=== PATIENT | male | born 1995 | race Caucasian/White ===

== ENCOUNTER 2018-11-29 23:01 | Inpatient (IN) | payer OTHER ==
[~2018-11-29] VITALS: Ht 177.8 cm; Wt 75.0 kg
[2018-11-29] MEDS ORDERED: TRAZ-252 PO (23:32)
[2018-11-29] MEDS ORDERED: PHENY100 PO (23:32)
[2018-11-29] MEDS ORDERED: DIAZ10I IM (23:32)
[2018-11-29] MEDS ORDERED: GABA-531 PO (23:32)
[2018-11-29] MEDS ORDERED: IBUP-2070 PO (23:32)
[2018-11-29] MEDS ORDERED: HYDR50CA10 PO (23:32)
[2018-11-29] MEDS ORDERED: SERT100T12 PO (23:32)
[2018-11-29] MEDS ORDERED: HYDR-4031 PO (23:32)
[2018-11-29] MEDS ORDERED: 0.9% SODIUM CHLORIDE 10 ML SYRINGE IVP PRN (23:45)
[2018-11-29] MEDS ORDERED: ONDANSETRON HCL 4 MG/2 ML VIAL IVP PRN (23:45)
[2018-11-29] MEDS ORDERED: ACETAMINOPHEN 325 MG TABLET PO PRN (23:45)
[2018-11-30] LABS: BASOPHILS % (AUTO) 0.7 % (0.0-2.0); EOSINOPHILS % (AUTO) 1.2 % (1.0-6.0); HEMOGLOBIN 14.4 g/dL (13.5-17.5); LYMPHOCYTES # (AUTO) 1.4 K/uL (1.0-4.8); LYMPHOCYTES % (AUTO) 23.5 % (22.0-44.0); MEAN CORPUSCULAR HEMOGLOBIN 32.5 pg (26.0-34.0); MEAN CORPUSCULAR HGB CONC 33.5 G/dL (31.0-37.0); MEAN CORPUSCULAR VOLUME 97 fL (80-100); MONOCYTES # (AUTO) 0.9 K/uL (0.1-1.0); MONOCYTES % (AUTO) 14.6 % (2.0-9.0); NEUTROPHILS # (AUTO) 3.7 K/uL (1.8-7.7); PLATELET COUNT (AUTO) 245 K/uL (150-450); RED BLOOD CELL COUNT(AUTO) 4.43 MIL/uL (4.50-5.90); RED CELL DISTRIBUTION WIDTH 13.5 % (11.5-14.5)
[2018-11-30 00:13] LABS: ANION GAP 10 mmol/L (8-16); CALCIUM, TOTAL 9.1 mg/dL (8.8-10.5); CARBON DIOXIDE 23 mmol/L (22-29); CHLORIDE 105 mmol/L (98-107); CREATININE 1.07 mg/dL (0.60-1.30); GLOMERULAR FILTR. RATE CALC > 60 mL/min (>60); GLUCOSE,RANDOM 108 mg/dL (70-110); POTASSIUM 3.6 mmol/L (3.5-5.1); SODIUM SERUM 138 mmol/L (136-145); UREA NITROGEN, BLOOD 14 mg/dL (7-18)
[2018-11-30 00:19] LABS: ALANINE AMINOTRANSFERASE 14 U/L (12-78); ALBUMIN 3.8 g/dL (3.4-5.0); ALKALINE PHOSPHATASE 85 U/L (46-116); BILIRUBIN,TOTAL 0.3 mg/dL (0.1-1.0); PHENYTOIN (DILANTIN) 24.6 mcg/mL (10.0-20.0); TOTAL PROTEIN, SERUM 6.8 g/dL (6.4-8.2)
[2018-11-30 00:20] LABS: LACTIC ACID 1.7 mmol/L (0.4-2.0)
[2018-11-30 00:22] LABS: AMPHET/METH SCREEN,URINE NEGATIVE (NEGATIVE); BARBITURATE SCREEN, URINE NEGATIVE (NEGATIVE); BENZODIAZEPINES SCREEN,URINE POSITIVE (NEGATIVE); CANNABINOID SCREEN,URINE NEGATIVE (NEGATIVE); COCAINE SCREEN,URINE NEGATIVE (NEGATIVE); METHADONE SCREEN, URINE NEGATIVE (NEGATIVE); OPIATE SCREEN,URINE NEGATIVE (NEGATIVE)
[2018-11-30 00:24] LABS: PHENCYCLIDINE SCREEN,URINE NEGATIVE (NEGATIVE)
[2018-11-30 00:25] LABS: APPEARANCE,URINE CLEAR (CLEAR); BILIRUBIN,URINE NEGATIVE (NEGATIVE); GLUCOSE, URINE (UA) NEGATIVE (NEGATIVE); KETONES,URINE NEGATIVE (NEGATIVE); LEUKOCYTE ESTERASE ,URINE NEGATIVE (NEGATIVE); NITRATE,URINE NEGATIVE (NEGATIVE); OCCULT BLOOD,URINE NEGATIVE (NEGATIVE); PH,URINE 7.5 (5.0-8.0); PROTEIN,URINE NEGATIVE (NEGATIVE); UROBILINOGEN,URINE 0.2 mg/dL (<=1.0)
[2018-11-30 00:28] LABS: ASPARTATE AMINOTRANSFERASE 24 U/L (15-37)
[2018-11-30 00:43] LABS: BACTERIA,URINE Few /HPF (None Seen); RBC,URINE 0-2 /HPF (0-2); WBC,URINE 0-2 /HPF (0-5)
[2018-11-30 02:21] VITALS: BP 114/58
[2018-11-30] MEDS ORDERED: MAGNESIUM HYDROXIDE SUSPENSION 30 ML UDCUP PO PRN (05:00)
[2018-11-30] MEDS ORDERED: ACETAMINOPHEN 325 MG TABLET PO PRN (05:00)
[2018-11-30] MEDS ORDERED: LORazepam 2 MG/ML VIAL IVP PRN (06:45)
[2018-11-30 07:28] VITALS: BP 105/66
[2018-11-30] MEDS: FAMOTIDINE 20 MG TABLET PO SCH (08:29)
[2018-11-30] MEDS: PHENYTOIN SODIUM 100 MG ER CAPSULE PO SCH ×2 (08:29→21:26)
[2018-11-30] MEDS: GABAPENTIN 300 MG CAPSULE PO SCH ×3 (08:29→21:26)
[2018-11-30] MEDS ORDERED: GABAPENTIN 100 MG CAPSULE PO ONE (09:00)
[2018-11-30] MEDS ORDERED: PHENYTOIN SODIUM 100 MG ER CAPSULE PO ONE (09:00)
[2018-11-30 11:47] VITALS: BP 113/57
[2018-11-30] MEDS: SERTRALINE HCL 100 MG TABLET PO SCH (12:34)
[2018-11-30 15:48] VITALS: BP 107/50
[2018-11-30 19:52] VITALS: BP 114/58
[2018-11-30] MEDS ORDERED: TraZODone HCL 50 MG TABLET PO SCH (21:00)
[2018-11-30 23:33] VITALS: BP 123/64
[2018-12-01 05:35] VITALS: BP 122/59
[2018-12-01 07:31] VITALS: BP 105/60
[2018-12-01] MEDS: FAMOTIDINE 20 MG TABLET PO SCH (08:52)
[2018-12-01] MEDS: GABAPENTIN 300 MG CAPSULE PO SCH (08:53)
[2018-12-01] MEDS: SERTRALINE HCL 100 MG TABLET PO SCH (08:53)
[2018-12-01] MEDS ORDERED: PHEN100C23 PO (09:46)
== END 2018-12-01 12:05 | DRG 880 ==
LOC: EMS 23:02 → 6S 11-30 00:03
PROVIDERS: ADMIT Internal Medicine; ATTEND Internal Medicine
DX: F44.5 Conversion disorder with seizures or convulsions (principal); F33.2 Major depressive disorder, recurrent severe without psychotic features; F41.1 Generalized anxiety disorder; F12.90 Cannabis use, unspecified, uncomplicated; F60.3 Borderline personality disorder; Z79.899 Other long term (current) drug therapy; Z87.891 Personal history of nicotine dependence; Z88.8 Allergy status to other drugs, medicaments and biological substances
CPT/HCPCS: 83605; 87040; 93005; G0480

== ENCOUNTER 2019-02-21 21:04 | Inpatient (IN) | payer OTHER ==
[~2019-02-21] VITALS: Ht 177.8 cm; Wt 77.5 kg
[~2019-02-21 21:04] MED LIST: ASPI-1192 PO; GABA-531 PO; IBUP-2070 PO; PHEN100C23 PO; SERT100T12 PO; TRAZ-252 PO
[2019-02-21 22:37] LABS: BASOPHILS % (AUTO) 1.2 % (0.0-2.0); EOSINOPHILS % (AUTO) 2.4 % (1.0-6.0); HEMATOCRIT 47.3 % (41-53); HEMOGLOBIN 15.9 g/dL (13.5-17.5); LYMPHOCYTES # (AUTO) 1.6 K/uL (1.0-4.8); LYMPHOCYTES % (AUTO) 32.3 % (22.0-44.0); MEAN CORPUSCULAR HEMOGLOBIN 32.7 pg (26.0-34.0); MEAN CORPUSCULAR HGB CONC 33.6 G/dL (31.0-37.0); MEAN CORPUSCULAR VOLUME 97 fL (80-100); MONOCYTES % (AUTO) 21.3 % (2.0-9.0); NEUTROPHILS # (AUTO) 2.1 K/uL (1.8-7.7); NEUTROPHILS % (AUTO) 42.8 % (40.0-70.0); PLATELET COUNT (AUTO) 208 K/uL (150-450); RED BLOOD CELL COUNT(AUTO) 4.85 MIL/uL (4.50-5.90); RED CELL DISTRIBUTION WIDTH 12.6 % (11.5-14.5)
[2019-02-21 22:57] LABS: ANION GAP 3 mmol/L (8-16); CARBON DIOXIDE 31 mmol/L (22-29); CHLORIDE 106 mmol/L (98-107); CREATININE 0.95 mg/dL (0.60-1.30); GLUCOSE,RANDOM 99 mg/dL (70-110); POTASSIUM 4.2 mmol/L (3.5-5.1); SODIUM SERUM 140 mmol/L (136-145); UREA NITROGEN, BLOOD 17 mg/dL (7-18)
[2019-02-21 22:58] LABS: CALCIUM, TOTAL 8.5 mg/dL (8.8-10.5); GLOMERULAR FILTR. RATE CALC > 60 mL/min (>60)
[2019-02-21 23:02] LABS: AMPHET/METH SCREEN,URINE NEGATIVE (NEGATIVE); BARBITURATE SCREEN, URINE NEGATIVE (NEGATIVE); BENZODIAZEPINES SCREEN,URINE NEGATIVE (NEGATIVE); CANNABINOID SCREEN,URINE NEGATIVE (NEGATIVE); COCAINE SCREEN,URINE NEGATIVE (NEGATIVE); METHADONE SCREEN, URINE NEGATIVE (NEGATIVE); OPIATE SCREEN,URINE NEGATIVE (NEGATIVE)
[2019-02-21 23:03] LABS: PHENCYCLIDINE SCREEN,URINE NEGATIVE (NEGATIVE)
[2019-02-21 23:04] LABS: ALANINE AMINOTRANSFERASE 14 U/L (12-78); ALBUMIN 3.1 g/dL (3.4-5.0); ALKALINE PHOSPHATASE 89 U/L (46-116); ASPARTATE AMINOTRANSFERASE 13 U/L (15-37); BILIRUBIN,TOTAL 0.2 mg/dL (0.1-1.0); TOTAL PROTEIN, SERUM 6.9 g/dL (6.4-8.2); VALPROIC ACID 85 mcg/mL (50-100)
[2019-02-21 23:14] LABS: PHENYTOIN (DILANTIN) < 0.5 mcg/mL (10.0-20.0)
[2019-02-21] MEDS ORDERED: PHENYTOIN SODIUM 1,000 MG in SODIUM CHLORIDE 0.9% 150 ML IV ONE (23:30)
[2019-02-22] VITALS (7 sets, daily range): BP systolic 93–147; BP diastolic 58–79
[2019-02-22] MEDS: DOCUSATE SODIUM 100 MG CAPSULE PO SCH ×2 (09:55→21:00)
[2019-02-22] MEDS: GABAPENTIN 300 MG CAPSULE PO SCH (16:15)
[2019-02-22] MEDS: PHENYTOIN 100 MG/4 ML SUSPENSION UDCUP PO SCH (19:59)
[2019-02-22] MEDS: LORazepam 2 MG/ML VIAL IVP PRN (20:04)
[2019-02-23] VITALS (21 sets, daily range): BP systolic 82–135; BP diastolic 34–90
[2019-02-23] MEDS: GABAPENTIN 300 MG CAPSULE PO SCH ×3 (00:06→16:53)
[2019-02-23] MEDS: ACETAMINOPHEN 325 MG TABLET PO PRN (08:19)
[2019-02-23] MEDS: DOCUSATE SODIUM 100 MG CAPSULE PO SCH ×2 (08:19→20:35)
[2019-02-23] MEDS: LORazepam 2 MG/ML VIAL IVP PRN (08:50)
[2019-02-23] MEDS ORDERED: LORazepam 2 MG/ML VIAL IVP ONE (09:00)
[2019-02-23] MEDS ORDERED: LevETIRAcetam 1,000 MG in DEXTROSE 5%-WATER 100 ML IV ONE (09:00)
[2019-02-23] MEDS ORDERED: SODIUM CHLORIDE 0.9% 1,000 ML IV ONE ×2 (09:01→09:10)
[2019-02-23 09:55] LABS: BASOPHILS % (AUTO) 1.3 % (0.0-2.0); HEMATOCRIT 46.7 % (41-53); HEMOGLOBIN 15.7 g/dL (13.5-17.5); LYMPHOCYTES # (AUTO) 1.1 K/uL (1.0-4.8); LYMPHOCYTES % (AUTO) 25.8 % (22.0-44.0); MEAN CORPUSCULAR HEMOGLOBIN 32.8 pg (26.0-34.0); MEAN CORPUSCULAR HGB CONC 33.7 G/dL (31.0-37.0); MEAN CORPUSCULAR VOLUME 97 fL (80-100); MONOCYTES # (AUTO) 0.9 K/uL (0.1-1.0); MONOCYTES % (AUTO) 20.3 % (2.0-9.0); NEUTROPHILS # (AUTO) 2.2 K/uL (1.8-7.7); NEUTROPHILS % (AUTO) 50.6 % (40.0-70.0); PLATELET COUNT (AUTO) 187 K/uL (150-450); RED CELL DISTRIBUTION WIDTH 12.7 % (11.5-14.5)
[2019-02-23 10:09] LABS: ANION GAP 11 mmol/L (8-16); CALCIUM, TOTAL 8.2 mg/dL (8.8-10.5); CARBON DIOXIDE 23 mmol/L (22-29); CHLORIDE 104 mmol/L (98-107); GLOMERULAR FILTR. RATE CALC > 60 mL/min (>60); GLUCOSE,RANDOM 90 mg/dL (70-110); PHENYTOIN (DILANTIN) 9.2 mcg/mL (10.0-20.0); SODIUM SERUM 138 mmol/L (136-145); UREA NITROGEN, BLOOD 9 mg/dL (7-18)
[2019-02-23 10:34] LABS: ABG A-A DIFF O2 27.5 mmHg (10-20.0); ABG BASE EXCESS -4.8 mmol/L (-2.0-3.0); ABG CARBOXYHEMOGLOBIN 0.6 % (0.0-3.0); ABG HCO3 21.3 mmol/L (22.0-26.0); ABG METHEMOGLOBIN 0.1 % (0.0-1.5); ABG OXYGEN CONTENT 21.4 mL/dL (15.0-23.0); ABG OXYHEMOGLOBIN 98.3 % (94.0-100.0); ABG PCO2 34 mmHg (35-45); ABG PH 7.391 (7.350-7.450); ABG TOTAL HEMOGLOBIN 15.3 G/dL (12.0-18.0); PO2, ARTERIAL BG 146.5 mmHg (80.0-100.0); SOURCE, BLOOD GAS ARTERIAL; TEMPERATURE, FAHRENHEIT, BG 98.6 FAHREN (96.0-98.6)
[2019-02-23 11:08] LABS: SITE, BLOOD GAS LFT RADIAL
[2019-02-23 11:09] LABS: O2 DEVICE,BLOOD GAS CANNULA (ROOM AIR)
[2019-02-23] MEDS ORDERED: MAGNESIUM SULFATE 4 GM/WATER 100 ML IV PRN (16:45)
[2019-02-23] MEDS ORDERED: MAGNESIUM SULFATE 2 GM/WATER 50 ML IV PRN (16:45)
[2019-02-23] MEDS: MAGNESIUM OXIDE 400 MG TABLET PO PRN ×2 (16:54→20:35)
[2019-02-23 18:45] LABS: ALBUMIN 3.1 g/dL (3.4-5.0)
[2019-02-23 19:38] LABS: GLUCOMETER DEV NAME(LOC) 6N.1; GLUCOSE,POINT OF CARE 95 MG/DL (70-110)
[2019-02-23] MEDS: PHENYTOIN 100 MG/4 ML SUSPENSION UDCUP PO SCH (20:35)
[2019-02-24] VITALS (9 sets, daily range): BP systolic 82–122; BP diastolic 49–74
[2019-02-24] MEDS: GABAPENTIN 300 MG CAPSULE PO SCH ×4 (00:16→23:35)
[2019-02-24] MEDS: MAGNESIUM OXIDE 400 MG TABLET PO PRN ×5 (00:16→15:05)
[2019-02-24] MEDS: LORazepam 2 MG/ML VIAL IVP PRN ×3 (00:59→16:52)
[2019-02-24] MEDS ORDERED: LORazepam 2 MG/ML VIAL IVP ONE (01:30)
[2019-02-24] MEDS: DOCUSATE SODIUM 100 MG CAPSULE PO SCH ×2 (08:06→19:55)
[2019-02-24] MEDS: ACETAMINOPHEN 325 MG TABLET PO PRN ×2 (08:48→14:29)
[2019-02-24] MEDS: PHENYTOIN 100 MG/4 ML SUSPENSION UDCUP PO SCH (19:56)
[2019-02-25] VITALS (7 sets, daily range): BP systolic 101–126; BP diastolic 56–79
[2019-02-25] MEDS: GABAPENTIN 300 MG CAPSULE PO SCH (00:43)
[2019-02-25] MEDS: LORazepam 2 MG/ML VIAL IVP PRN ×2 (06:36→16:30)
[2019-02-25] MEDS ORDERED: DIVALPROEX SODIUM 500 MG DR TABLET PO ONE (07:30)
[2019-02-25] MEDS: DOCUSATE SODIUM 100 MG CAPSULE PO SCH ×2 (07:53→20:31)
[2019-02-25] MEDS: LamoTRIgine 25 MG TABLET PO SCH ×2 (11:07→20:33)
[2019-02-25] MEDS: LACOSAMIDE 100 MG TABLET PO SCH ×2 (11:07→20:32)
[2019-02-25] MEDS: ACETAMINOPHEN 325 MG TABLET PO PRN (13:57)
[2019-02-25] MEDS: DIVALPROEX SODIUM 500 MG DR TABLET PO SCH (20:31)
[2019-02-25] MEDS: TraZODone HCL 50 MG TABLET PO SCH (20:32)
[2019-02-26] VITALS (7 sets, daily range): BP systolic 92–114; BP diastolic 48–70
[2019-02-26] MEDS: LORazepam 2 MG/ML VIAL IVP PRN ×2 (06:33→09:32)
[2019-02-26] MEDS: DOCUSATE SODIUM 100 MG CAPSULE PO SCH ×2 (08:18→20:48)
[2019-02-26] MEDS: LACOSAMIDE 100 MG TABLET PO SCH ×2 (08:18→20:49)
[2019-02-26] MEDS: SERTRALINE HCL 100 MG TABLET PO SCH (08:18)
[2019-02-26] MEDS: LamoTRIgine 25 MG TABLET PO SCH ×2 (08:19→20:51)
[2019-02-26] MEDS: DIVALPROEX SODIUM 500 MG DR TABLET PO SCH (20:48)
[2019-02-26] MEDS: TraZODone HCL 50 MG TABLET PO SCH (20:48)
[2019-02-27 02:26] VITALS: BP 115/59
[2019-02-27 07:35] VITALS: BP 106/69
[2019-02-27] MEDS: DOCUSATE SODIUM 100 MG CAPSULE PO SCH (08:23)
[2019-02-27] MEDS: LACOSAMIDE 100 MG TABLET PO SCH (08:23)
[2019-02-27] MEDS: LamoTRIgine 25 MG TABLET PO SCH (08:24)
[2019-02-27] MEDS: SERTRALINE HCL 100 MG TABLET PO SCH (08:24)
[2019-02-27] MEDS ORDERED: DIVALPROEX SODIUM 500 MG DR TABLET PO SCH (09:00)
[2019-02-27] MEDS: ACETAMINOPHEN 325 MG TABLET PO PRN ×2 (10:07→15:22)
[2019-02-27 11:43] VITALS: BP 130/76
[2019-02-27] MEDS ORDERED: DIVA-54 PO (12:20)
[2019-02-27] MEDS ORDERED: DIVA-78 PO (13:02)
[2019-02-27] MEDS ORDERED: LACO100 PO (13:03)
[2019-02-27] MEDS ORDERED: SERT100T12 PO (13:04)
[2019-02-27] MEDS ORDERED: LAMO25 PO (13:04)
[2019-02-27] MEDS ORDERED: TRAZ-252 PO (13:05)
[2019-02-27] MEDS: LORazepam 2 MG/ML VIAL IVP PRN (14:36)
[2019-02-27 15:30] VITALS: BP 112/78
== END 2019-02-27 18:05 | DRG 101 ==
LOC: EMS 21:05 → UNDOADMIN 22:18 → 6S 22:18 → 5S 22:18 → 6S 02-22 18:18
PROVIDERS: ADMIT Internal Medicine; ATTEND Internal Medicine
DX: G40.89 Other seizures (principal); F33.2 Major depressive disorder, recurrent severe without psychotic features; F41.9 Anxiety disorder, unspecified; F60.3 Borderline personality disorder; F20.9 Schizophrenia, unspecified; F12.90 Cannabis use, unspecified, uncomplicated; Z79.899 Other long term (current) drug therapy; Z88.8 Allergy status to other drugs, medicaments and biological substances; Z91.018 Allergy to other foods; Z87.891 Personal history of nicotine dependence; Z90.49 Acquired absence of other specified parts of digestive tract
CPT/HCPCS: 70450; 82805; 83605; 83735; 87040; 93005; 95816; 96365; G0480; G0482; J0712; J1165; J2060; J7030; J7050; J7060